=== PATIENT | male | born 1995 | race Caucasian/White ===

== ENCOUNTER 2018-05-30 06:05 | Emergency (ER) | payer OTHER ==
[~2018-05-30] VITALS: Ht 167.6 cm; Wt 68.0 kg
--- NOTE | 2018-05-30 06:08 | NUR ---
AMBULATED TO ER BED 6
[2018-05-30 06:13] VITALS: BP 134/80
--- NOTE | 2018-05-30 06:18 | NUR ---
FIRST CONTACT WITH PATIENT PATIENT BIB FRIEND C/O CP X 1 DAY. PATIENT STATES CP IS LEFT CHEST WALL, NONRADIATING, INTERMITTENT, SHARP PAIN. PATIENT EXPRESS THAT PAIN IS 10/10, +VOMITING. PATIENT GCS 15, AAOX4. PATIENT STATES HE SMOKED METH/HEROIN 2 DAYS AGO. PATIENTS HR 93 BPM, SR ON CM, EKG COMPLETED AT BEDSIDE. PATIENT BREATHING IS EVEN AND UNLABORED, EQUAL RISE AND FALL OF CHEST. PATIENT HAS HX OF HEP-C, ASTHMA, AND STATES HE HAS A COLLAPSE RIGHT LUNG THAT IS 3 YEARS OLD. PATIENT CHANGED INTO HOSPITAL GOWN, CONNECT TO , BED IN LOWEST POSITION AND SIDE RAILS UP X [address] DIANA MADE AWARE OF PATIENTS STATUS. WILL CONTINUE TO MONITOR
--- NOTE | 2018-05-30 06:21 | NUR ---
EKG PERFORMED AT BEDSIDE. PT COVERED IN GOWN DURING PROCEDURE.
--- NOTE | 2018-05-30 07:10 | NUR ---
Patient being evaluated by physician at bedside.
[2018-05-30] MEDS ORDERED: KETOROLAC 30 MG/ML VIAL IVP ONE (07:20)
[2018-05-30] MEDS ORDERED: NACL 0.9% 1,000 ML IV ONE (07:20)
[2018-05-30] MEDS ORDERED: LORazepam 2 MG/ML VIAL IVP ONE ×2 (07:20→09:00)
[2018-05-30 08:01] LABS: BASOPHILS # (AUTO) 0.1 K/uL (0.00-0.22); BASOPHILS % (AUTO) 0.7 % (0.0-2.0); EOSINOPHILS % (AUTO) 0.2 % (0.0-4.0); HEMATOCRIT 45.5 % (36-52); HEMOGLOBIN 15.2 g/dL (12.0-18.0); LYMPHOCYTES # (AUTO) 2.8 K/uL (2.0-11.5); LYMPHOCYTES % (AUTO) 23.8 % (20.5-51.1); MEAN CORPUSCULAR HEMOGLOBIN 29 pg (27-31); MEAN CORPUSCULAR HGB CONC 33 g/dL (33-37); MEAN CORPUSCULAR VOLUME 86.6 fL (80-94); MONOCYTES # (AUTO) 0.9 K/uL (0.8-1.0); NEUTROPHILS # (AUTO) 7.9 K/uL (1.8-7.7); NEUTROPHILS % (AUTO) 67.3 % (42.2-75.2); PLATELET COUNT (AUTO) 469 K/uL (140-450); RED BLOOD CELL COUNT(AUTO) 5.25 MIL/uL (4.20-6.10); RED CELL DISTRIBUTION WIDTH 13.6 % (11.6-13.7); WHITE BLOOD COUNT (AUTO) 11.7 K/uL (4.8-10.8)
--- NOTE | 2018-05-30 08:05 | NUR ---
REPORT GIVEN TO MINH ARIAS TO ASSUME CARE.
[2018-05-30 08:13] LABS: BARBITURATE, URINE NEG. ng/ml (NEG <=200); BENZODIAZEPINE, URINE NEG. ng/mL (NEG <=200); CANNABINOID, URINE NEG. ng/mL (NEG <=50); COCAINE, URINE NEG. ng/mL (NEG <=300); OPIATE, URINE NEG. ng/mL (NEG <=2000); PHENCYCLIDINE SCREEN,URINE NEG. ng/mL (NEG <=25)
--- NOTE | 2018-05-30 08:21 | NUR ---
PT. RESTING COMFORTABLY IN BED, RR EVEN AND UNLABORED. VSS. HOB ELEVATED. FRIEND AT BEDSIDE. WILL CONTINUE TO MONITOR.
[2018-05-30 08:48] LABS: CARBON DIOXIDE 27.4 mmol/L (21-32); CREATININE 0.9 mg/dL (0.7-1.3); POTASSIUM 3.4 mmol/L (3.5-5.1)
[2018-05-30 08:54] LABS: ALBUMIN 4.8 g/dL (3.4-5.0); TOTAL BILIRUBIN 0.4 mg/dL (0.0-1.0)
[2018-05-30 09:30] VITALS: BP 114/65
== END 2018-05-30 09:30 | disposition home or self-care (01) ==
LOC: MED 06:05
DX: R07.89 Other chest pain (principal); J45.909 Unspecified asthma, uncomplicated; F15.10 Other stimulant abuse, uncomplicated
CPT/HCPCS: 36415; 71045; 80053; 80305; 84484; 85025; 96374; 96375; 96376; 99285; J1885; J2060; Q0092; J7030

== ENCOUNTER 2022-10-05 22:24 | Emergency (ER) | payer MEDICAID, OTHER ==
[~2022-10-05] VITALS: Ht 167.6 cm; Wt 69.4 kg
[2022-10-05 22:38] VITALS: BP 129/68
[2022-10-05] MEDS ORDERED: IBUPROFEN 600 MG TAB PO ONE (22:45)
[2022-10-05] MEDS ORDERED: ONDANSETRON 4 MG ODT PO ONE (22:45)
--- NOTE | 2022-10-05 22:57 | NUR ---
pt to chair b
--- NOTE | 2022-10-05 23:10 | NUR ---
PT CONTINUES TO VOMIT
--- NOTE | 2022-10-05 23:11 | NUR ---
PT TO BED 09
--- NOTE | 2022-10-05 23:12 | NUR ---
Patient lying in bed, A/Ox4, chest rise and fall symmetrical, no s/s of discomfort, on monitor
[2022-10-05] MEDS ORDERED: ONDANSETRON 4 MG/2 ML VIAL IVP ONE (23:20)
--- NOTE | 2022-10-05 23:55 | NUR ---
Patient lying in bed, A/Ox4, chest rise and fall symmetrical, no s/s of discomfort, on monitor
[2022-10-06] LABS: BASOPHILS % (AUTO) 0.2 % (0.0-2.0); HEMATOCRIT 37.6 % (36-52); HEMOGLOBIN 12.5 g/dL (12.0-18.0); LYMPHOCYTES # (AUTO) 1.1 K/uL (2.0-11.5); LYMPHOCYTES % (AUTO) 9.2 % (20.5-51.1); MEAN CORPUSCULAR HEMOGLOBIN 28 pg (27-31); MEAN CORPUSCULAR HGB CONC 33 g/dL (33-37); MEAN CORPUSCULAR VOLUME 85.4 fL (80-94); MONOCYTES # (AUTO) 1.3 K/uL (0.8-1.0); MONOCYTES % (AUTO) 10.3 % (1.7-9.3); NEUTROPHILS % (AUTO) 80.3 % (42.2-75.2); PLATELET COUNT (AUTO) 274 K/uL (140-450); RED BLOOD CELL COUNT(AUTO) 4.41 MIL/uL (4.20-6.10); RED CELL DISTRIBUTION WIDTH 13.5 % (11.6-13.7); WHITE BLOOD COUNT (AUTO) 12.4 K/uL (4.8-10.8)
[2022-10-06 00:03] LABS: APPEARANCE,URINE CLEAR (CLEAR); BILIRUBIN,URINE 1+ (NEGATIVE); BLOOD, URINE TRACE-I (NEGATIVE); COLOR,URINE YELLOW (YELLOW); LEUKOCYTE ESTERASE ,URINE NEGATIVE (NEGATIVE); NITRITE, URINE NEGATIVE (NEGATIVE); UGLUCOSE NEGATIVE (NEGATIVE)
[2022-10-06 00:18] LABS: WBC,URINE 0-5 /HPF (0-5)
[2022-10-06 00:22] LABS: ALBUMIN 4.2 g/dL (3.4-5.0); ANION GAP 12.2 (8-16); CARBON DIOXIDE 28.8 mmol/L (21-32); CREATININE 1.1 mg/dL (0.6-1.3); TOTAL BILIRUBIN 0.4 mg/dL (0.0-1.0)
[2022-10-06] MEDS ORDERED: NACL 0.9% 1,000 ML IV ONE (00:45)
[2022-10-06] MEDS ORDERED: IBUP-2213 PO (00:56)
[2022-10-06] MEDS ORDERED: ONDA-188 SL (00:56)
[2022-10-06] MEDS ORDERED: TAM75 PO (00:56)
--- NOTE | 2022-10-06 01:00 | NUR ---
Patient lying in bed, A/Ox4, chest rise and fall symmetrical, no s/s of discomfort, on monitor
[2022-10-06] MEDS ORDERED: POTASSIUM CHLORIDE 10 MEQ TABER PO ONE (01:25)
[2022-10-06] MEDS ORDERED: ACETAMINOPHEN EXTRA STRENGTH 500 MG TAB PO ONE (01:30)
--- NOTE | 2022-10-06 03:00 | NUR ---
Patient lying in bed, A/Ox4, chest rise and fall symmetrical, no s/s of discomfort, on monitor
[2022-10-06 03:08] VITALS: BP 112/84
== END 2022-10-06 03:05 | disposition home or self-care (01) ==
LOC: MED 22:24
DX: J10.1 Influenza due to other identified influenza virus with other respiratory manifestations (principal); Z20.822 Contact with and (suspected) exposure to COVID-19; E86.0 Dehydration; E87.6 Hypokalemia; J45.909 Unspecified asthma, uncomplicated; Z79.899 Other long term (current) drug therapy
CPT/HCPCS: 36415; 71045; 74018; 80053; 81001; 83690; 85025; 87426; 87804; 96361; 96374; 99285; J2405; Q0092; Q0162; J7030

== ENCOUNTER 2022-11-22 18:19 | Emergency (ER) | payer MEDICAID ==
[~2022-11-22] VITALS: Ht 172.7 cm; Wt 66.7 kg
[~2022-11-22 18:19] MED LIST: IBUP-2213 PO; TAM75 PO
[2022-11-22 19:27] VITALS: BP 127/72
[2022-11-22 19:30] VITALS: BP 127/72
--- NOTE | 2022-11-22 19:40 | NUR ---
ANGY Meyer examining pain.
[2022-11-22] MEDS ORDERED: IBUP-2213 PO (19:49)
[2022-11-22] MEDS ORDERED: AMOX-1230 PO (19:49)
--- NOTE | 2022-11-22 20:04 | NUR ---
Patient discharged with v/s stable. Written and verbal after care instructions given and explained. Patient verbalized understanding. Ambulatory with steady gait. All questions addressed prior to discharge. Advised to follow up with PMD.
[2022-11-22] MEDS: KETOROLAC 30 MG/ML VIAL IM ONE (20:06)
[2022-11-22] MEDS: AMOXIL/CLAVULANATE 875/125 MG 1 TAB PO ONE (20:06)
== END 2022-11-22 20:04 | disposition home or self-care (01) ==
LOC: MED 18:19
DX: L03.811 Cellulitis of head [any part, except face] (principal); L03.115 Cellulitis of right lower limb; J45.909 Unspecified asthma, uncomplicated; F15.90 Other stimulant use, unspecified, uncomplicated; F11.90 Opioid use, unspecified, uncomplicated; Z79.1 Long term (current) use of non-steroidal anti-inflammatories (NSAID); Z79.2 Long term (current) use of antibiotics
CPT/HCPCS: 96372; 99283; J1885

== ENCOUNTER 2022-12-08 11:54 | Emergency (ER) | payer MEDICAID ==
[~2022-12-08] VITALS: Ht 182.9 cm; Wt 90.7 kg
[~2022-12-08 11:54] MED LIST changes: +AMOX-1230 PO
[2022-12-08 11:55] VITALS: BP 113/62
--- NOTE | 2022-12-08 11:57 | NUR ---
REPORT GIVEN TO CHARGE NURSE
--- NOTE | 2022-12-08 12:22 | NUR ---
27 YO MALE BIBA C/O OF SHORTNESS OF BREATH AND FEELS WEAK SINCE EARLIER TODAY. PATIENT STATES TAKING FENTANYL LATE LAST NIGHT, TAKES FENTANYL REGULARLY. HX OF ASTHMA NKA
[2022-12-08] MEDS ORDERED: buprenorphine HCL 2 MG sublingual tab SL ONE ×2 (12:40→14:35)
[2022-12-08 13:09] LABS: BASOPHILS % (AUTO) 0.4 % (0.0-2.0); EOSINOPHILS % (AUTO) 0.5 % (0.0-4.0); HEMATOCRIT 43.5 % (36-52); HEMOGLOBIN 14.8 g/dL (12.0-18.0); LYMPHOCYTES # (AUTO) 1.4 K/uL (2.0-11.5); LYMPHOCYTES % (AUTO) 16.5 % (20.5-51.1); MEAN CORPUSCULAR HEMOGLOBIN 29 pg (27-31); MEAN CORPUSCULAR HGB CONC 34 g/dL (33-37); MEAN CORPUSCULAR VOLUME 84.2 fL (80-94); MONOCYTES # (AUTO) 0.2 K/uL (0.8-1.0); MONOCYTES % (AUTO) 2.3 % (1.7-9.3); NEUTROPHILS # (AUTO) 6.7 K/uL (1.8-7.7); NEUTROPHILS % (AUTO) 80.3 % (42.2-75.2); PLATELET COUNT (AUTO) 477 K/uL (140-450); RED BLOOD CELL COUNT(AUTO) 5.17 MIL/uL (4.20-6.10); RED CELL DISTRIBUTION WIDTH 12.8 % (11.6-13.7); WHITE BLOOD COUNT (AUTO) 8.3 K/uL (4.8-10.8)
[2022-12-08 13:29] LABS: ALBUMIN 4.2 g/dL (3.4-5.0); ANION GAP 12.7 (8-16); ASPARTATE AMINOTRANSFERASE 23 U/L (15-37); CARBON DIOXIDE 26.9 mmol/L (21-32); CHLORIDE 99 mmol/L (98-107); CREATININE 0.8 mg/dL (0.6-1.3); GFR ARICAN-AMERICAN 148 mL/min (>90); GLUCOSE 110 mg/dL (74-106); POTASSIUM 3.6 mmol/L (3.5-5.1); SODIUM SERUM 135 mmol/L (136-145); TOTAL BILIRUBIN 0.4 mg/dL (0.0-1.0); UREA NITROGEN, BLOOD 12 mg/dL (7-18)
[2022-12-08] MEDS ORDERED: BUPR1TAB45 SL (15:02)
[2022-12-08 15:23] VITALS: BP 107/55
--- NOTE | 2022-12-08 15:31 | NUR ---
Patient discharged with v/s stable. Written and verbal after care instructions given and explained. Patient alert, oriented and verbalized understanding of instructions. Ambulatory with steady gait. All questions addressed prior to discharge. ID band removed. Patient advised to follow up with PMD. Rx of BUPRENORPHINE HCL/NALOXONE HCL given. Patient educated on indication of medication including possible reaction and side effects. Opportunity to ask questions provided and answered.
== END 2022-12-08 15:30 | disposition home or self-care (01) ==
LOC: MED 11:54
DX: F11.23 Opioid dependence with withdrawal (principal); J45.909 Unspecified asthma, uncomplicated; Z79.899 Other long term (current) drug therapy; Z79.1 Long term (current) use of non-steroidal anti-inflammatories (NSAID); Z79.2 Long term (current) use of antibiotics
CPT/HCPCS: 36415; 71045; 80053; 84484; 85025; 93005; 99285; Q0092